=== PATIENT | female | born 2000 | race Two or more races ===

== ENCOUNTER 2022-01-29 21:38 | Emergency (ER) | payer MEDICAID ==
[~2022-01-29] VITALS: Ht 162.6 cm; Wt 83.4 kg
[2022-01-30] MEDS ORDERED: ACYC1CAP23 PO (01:47)
[2022-01-30 02:12] LABS: Urine Bacteria NONE SEEN /hpf (None Seen); Urine Blood 1+ /uL (Negative); Urine Mucus FEW (None Seen); Urine Specific Gravity 1.033 (1.001-1.035); Urine WBC 244 /hpf (0 - 5)
[2022-01-30 04:20] VITALS: BP 132/74
== END 2022-01-30 04:30 | disposition home or self-care (01) ==
LOC: ER 21:38
DX: B00.9 Herpesviral infection, unspecified (principal)
CPT/HCPCS: 81001; 81025